=== PATIENT | male | born 1990 | race Caucasian/White ===

== ENCOUNTER 2016-11-28 08:53 | Emergency (ER) | payer SELFPAY ==
[~2016-11-28] VITALS: Ht 190.5 cm; Wt 95.3 kg
[2016-11-28 09:07] VITALS: BP 123/77
[2016-11-28] MEDS ORDERED: KETOROLAC TROMETH 60MG/2ML VIAL IM ONE (09:45)
== END 2016-11-28 10:15 | disposition home or self-care (01) ==
LOC: ER 08:53
DX: M54.9 Dorsalgia, unspecified (principal); M79.1 Myalgia
CPT/HCPCS: 96372; 99283; J1885